=== PATIENT | male | born 1975 | race African-American/Black ===

== ENCOUNTER 2022-09-18 19:11 | Emergency (ER) | payer SELFPAY ==
[2022-09-18] MEDS ORDERED: levETIRAcetam 500 MG/5 ML VIAL ONE (19:48)
[2022-09-18 20:00] LABS: Hemoglobin 14.3 g/dL (14.0-18.0); Mean Corpuscular HGB CONC 32.5 g/dL (32.0-36.0); Mean Corpuscular Hemoglobin 28.9 pg (27.0-31.0); Mean Corpuscular Volume 88.7 fl (78.0-98.0); Mean Platelet Volume 9.6 fL (7.4-10.4); Platelet Count 210 10x3/uL (130-400); RBC Distribution Width 13.2 % (11.5-14.5); Red Blood Cell (RBC) Count 4.95 mill/uL (4.70-6.10); White Blood Cell (WBC) Count 6.6 10x3/uL (4.8-10.8)
[2022-09-18 20:06] LABS: Band 2 % (5-11); Lymphocytes 30 % (21-51); MDiff Complete? YES; Manual Diff?? YES; Monocytes 10 % (0-10); Neutrophil 58 % (42-75); Platelet Adequacy Comment Appears Adequate
[2022-09-18 20:07] LABS: RBC Morph Comment Within Normal Limits
[2022-09-18 20:11] LABS: ALT (SGPT) 16 U/L (8-55); AST (SGOT) 23 U/L (5-34); Albumin 4.6 g/dL (3.5-5.0); Alkaline Phosphatase 80 U/L (40-110); Anion Gap 17 mmol/L (10-20); BUN (Urea Nitrogen) 8 mg/dL (8.9-20.6); Bilirubin, Total 0.7 mg/dL (0.2-1.2); Calc. Creatinine Clearance 0 mL/min (70-130); Calcium 9.8 mg/dL (7.8-10.44); Carbon Dioxide 22 mmol/L (22-29); Chloride 105 mmol/L (98-107); Estimated GFR 83; Globulin 3.3 g/dL (2.4-3.5); Glucose 93 mg/dL (70-105); Magnesium 2.2 mg/dL (1.6-2.6); Potassium 3.6 mmol/L (3.5-5.1); Protein, Total 7.9 g/dL (6.0-8.3); Sodium 140 mmol/L (136-145)
[2022-09-18 20:12] LABS: Acetaminophen Less than 10 mcg/mL (10.0-30.0); Alcohol Less than 10.0 mg/dL (Less than 10); Salicylate Less than 8.0 mg/dL (15.0-30.0)
[2022-09-18] MEDS ORDERED: Ondansetron PF 4 MG/2 ML Vial ONE (21:32)
[2022-09-18] MEDS ORDERED: Sodium Chloride 0.9% 500 ML ONE (21:39)
[2022-09-18 21:56] LABS: Amphetamine Not Detected (NotDetected); Barbiturates Screen Not Detected (NotDetected); Benzodiazepine Screen Not Detected (NotDetected); Cocaine Metabolite Screen Not Detected (NotDetected); Methadone Not Detected (NotDetected); Methamphetamine Not Detected (NotDetected); Opiate Screen Not Detected (NotDetected); Oxycodone Screen Not Detected (NotDetected); Phencyclidine (PCP) Not Detected (NotDetected); THC/Cannabinoid Screen Detected (NotDetected); Tricyclic Screen Not Detected (NotDetected)
== END 2022-09-18 21:59 | disposition home or self-care (01) ==
LOC: MADERS 19:11
DX: R56.9 Unspecified convulsions (principal); F17.210 Nicotine dependence, cigarettes, uncomplicated
CPT/HCPCS: 80053; 80306; 80307; 83735; 85025; 93005; 96365; 96375; J1953; J2405; J7030

== ENCOUNTER 2022-10-12 13:12 | Emergency (ER) | payer SELFPAY ==
[~2022-10-12 13:12] MED LIST: Sodium Chloride 0.9% 100 ML BAG ONE; Sodium Chloride 0.9% 500 ML BAG ONE
[2022-10-12] MEDS ORDERED: Sodium Chloride 0.9% 1,000 ML ONE ×2 (13:40→14:44)
[2022-10-12] MEDS ORDERED: Ketorolac Tromethamine 30 MG/ML VIAL ONE (13:40)
[2022-10-12] MEDS ORDERED: Ondansetron PF 4 MG/2 ML Vial ONE (13:40)
[2022-10-12 14:15] LABS: #Basophils 0.1 thou/uL (0.0-0.2); #Lymphocytes 1.7 thou/uL (1.20-3.40); #Monocytes 0.4 thou/uL (0.11-0.59); #Neutrophils 10.4 thou/uL (1.40-6.50); %Basophils 0.6 % (0.0-1.0); %Lymphocytes 13.5 % (21.0-51.0); %Monocytes 2.9 % (0.0-10.0); Hemoglobin 18.9 g/dL (14.0-18.0); Mean Corpuscular HGB CONC 31.8 g/dL (32.0-36.0); Mean Corpuscular Hemoglobin 28.5 pg (27.0-31.0); Mean Corpuscular Volume 89.7 fl (78.0-98.0); Platelet Count 352 10x3/uL (130-400); RBC Distribution Width 13.7 % (11.5-14.5); Red Blood Cell (RBC) Count 6.61 mill/uL (4.70-6.10); White Blood Cell (WBC) Count 12.5 10x3/uL (4.8-10.8)
[2022-10-12 14:28] LABS: Acetaminophen Less than 10 mcg/mL (10.0-30.0); Alcohol Less than 10.0 mg/dL (Less than 10); Salicylate Less than 8.0 mg/dL (15.0-30.0)
[2022-10-12] MEDS ORDERED: Diazepam 10 MG/2 ML SYRINGE ONE (14:29)
[2022-10-12 14:30] LABS: ALT (SGPT) 15 U/L (8-55); AST (SGOT) 21 U/L (5-34); Albumin 5.4 g/dL (3.5-5.0); Alkaline Phosphatase 110 U/L (40-110); Anion Gap 29 mmol/L (10-20); BUN (Urea Nitrogen) 41 mg/dL (8.9-20.6); Bilirubin, Total 0.9 mg/dL (0.2-1.2); CK (CPK) 224 U/L (30-200); Calc. Creatinine Clearance 0 mL/min (70-130); Calcium 11.5 mg/dL (7.8-10.44); Carbon Dioxide 23 mmol/L (22-29); Chloride 91 mmol/L (98-107); Estimated GFR 8; Globulin 4.5 g/dL (2.4-3.5); Glucose 230 mg/dL (70-105); Protein, Total 9.9 g/dL (6.0-8.3); Sodium 137 mmol/L (136-145)
[2022-10-12 14:34] LABS: Potassium 6.1 mmol/L (3.5-5.1)
[2022-10-12] MEDS ORDERED: Insulin Regular 300 UNITS/3 ML VIAL ONE (14:51)
[2022-10-12] MEDS ORDERED: Dextrose 50% Abboject 50 ML SYRINGE ONE (14:51)
[2022-10-12] MEDS ORDERED: Albuterol 2.5 MG/0.5 ML NEB ONE (14:51)
[2022-10-12] MEDS ORDERED: Cefepime 1 GM VIAL ONE (15:17)
[2022-10-12] MEDS ORDERED: Calcium Gluc 4.6 MEQ/10 ML (100 MG/ML) ONE (15:17)
[2022-10-12] MEDS ORDERED: Sodium Chloride 0.9% 100 ML ONE (15:17)
[2022-10-12] MEDS ORDERED: Dextrose 5 %-0.45 % NaCl 1,000 ML ONE (15:50)
[2022-10-12] MEDS ORDERED: Vancomycin HCl 500 MG VIAL ONE (16:01)
[2022-10-12] MEDS ORDERED: Vancomycin HCl 750 MG VIAL ONE (16:01)
[2022-10-12 16:31] LABS: Anion Gap 21 mmol/L (10-20)
[2022-10-12 16:34] LABS: BUN (Urea Nitrogen) 40 mg/dL (8.9-20.6); Calc. Creatinine Clearance 0 mL/min (70-130); Carbon Dioxide 22 mmol/L (22-29); Chloride 98 mmol/L (98-107); Estimated GFR 9; Glucose 260 mg/dL (70-105); Potassium 5.3 mmol/L (3.5-5.1); Sodium 136 mmol/L (136-145)
[2022-10-12 16:35] LABS: Calcium 9.5 mg/dL (7.8-10.44)
== END 2022-10-12 17:10 | disposition short-term general hospital (02) ==
LOC: MADERS 13:12
DX: A41.9 Sepsis, unspecified organism (principal); N17.9 Acute kidney failure, unspecified; E87.5 Hyperkalemia; E87.20 Acidosis, unspecified; G40.909 Epilepsy, unspecified, not intractable, without status epilepticus; Z79.899 Other long term (current) drug therapy; F17.210 Nicotine dependence, cigarettes, uncomplicated
CPT/HCPCS: 36415; 36416; 70450; 71045; 80053; 80307; 82550; 83605; 85025; 87040; 93005; 96360; 96361; 96365; 96367; 96372; 96375; J0612; J0692; J1815; J1885; J2405; J3360; J3370; J3490; J7030; J7042; J7050; J7611; J7999